=== PATIENT | male | born 1995 | race Caucasian/White ===

== ENCOUNTER 2018-09-28 11:23 | Emergency (ER) | payer OTHER ==
--- NOTE | 2018-09-28 12:44 | XR ---
EXAMINATION TYPE: XR chest 2V DATE OF EXAM: 09/28/2018 COMPARISON: Prior chest x-ray 09/16/2015 HISTORY: Upper respiratory infection, history of asthma TECHNIQUE: Frontal and lateral views of the chest are obtained. FINDINGS: Bronchial wall thickening is present. There is no focal air space opacity, pleural effusion , or pneumothorax seen. The cardiac silhouette size is within normal limits. The osseous structure s are intact. IMPRESSION: No acute cardiopulmonary process. There is improved aeration to the right upper lobe as compared to previous exam. Correlate for bronchitis, reactive airways disease.
--- NOTE | 2018-09-28 13:06 | ED ---
URI HPI - General Chief Complaint: Upper Respiratory Infection Stated Complaint: Sick Time Seen by Provider: 09/28/18 12:25 Source: patient Mode of arrival: ambulatory Limitations: no limitations - History of Present Illness Initial Comments: Patient is a 23-year-old male presenting to the emergency department complaining of sinus pain, sore throat, headache, congestion, ear pain x 4 days. Patient admits to history of mild asthma. Patient denies fever, chills, nausea, vomiting, shortness of breath, coughing. Patient has tried [id number] med ications without improvement. No other complaints at this time. - Related Data Home Medications Medication Instructions Recorded Confirmed Albuterol Inhaler [Ventolin Hfa 1 - 2 puff INHALATION Q6HR PRN 09/16/15 09/16/15 Inhaler] Albuterol Nebulized [Ventolin 2.5 mg INHALATION Q4H PRN 09/16/15 09/16/15 Nebulized] Beclomethasone Dipropionate [Qvar 2 puff INHALATION BID 09/16/15 09/16/15 80 mcg/puff] Previous Rx's Medication Instructions Recorded Amoxicillin/Potassium Clav 1 tab PO Q12HR #14 tab 09/13/15 [Augmentin 875-125 Tablet] Levofloxacin [Levaquin] 500 mg PO DAILY #10 tab 09/16/15 Albuterol Sulfate [Proair Hfa] 1 - 2 puff INHALATION Q4HR PRN #1 09/28/18 inhaler Amoxicillin/Potassium Clav 1 tab PO BID 5 Days #10 tab 09/28/18 [Augmentin 875-125 Tablet] Allergies Allergy/AdvReac Type Severity Reaction Status Date / Time No Known Allergies Allergy Verified 09/28/18 12:00 Review of Systems ROS Statement: Those systems with pertinent positive or pertinent negative responses have been documented in the HPI. ROS Other: All systems not noted in ROS Statement are negative. Past Medical History Past Medical History: Asthma History of Any Multi-Drug Resistant Organisms: None Reported Past Surgical History: No Surgical Hx Reported Past Psychological History: Depression, PTSD Smoking Status: Never smoker Past Alcohol Use History: None Reported Past Drug Use History: None Reported General Exam - General Exam Comments Initial Comments: GENERAL: Well-appearing, well-nourished and in no acute distress. Patient playing on phone. HEAD: Atraumatic, normocephalic. EYES: Pupils equal round and reactive to light, extraocular movements intact, sclera anicteric, conjunctiva are normal. ENT: TMs mild erythema, nares patent, oropharynx clear without exudates. Bilateral tonsils mildly enlarged, erythema. No exudates. Moist mucous membranes. NECK: Normal range of motion, supple without lymphadenopathy or JVD. LUNGS: Breath sounds clear to auscultation bilaterally and equal. No wheezes rales or rhonchi. HEART: Regular rate and rhythm without murmurs, rubs or gallops. ABDOMEN: Soft, nontender, normoactive bowel sounds. No guarding, no rebound. No masses appreciated. : Deferred EXTREMITIES: Normal range of motion, no pitting or edema. No clubbing or cyanosis. NEUROLOGICAL: Cranial nerves II through XII grossly intact. Normal speech, normal gait. PSYCH: Normal mood, normal affect. SKIN: Warm, Dry, normal turgor, no rashes or lesions noted. Limitations: no limitations Course Vital Signs 09/28/18 09/28/18 11:59 12:15 Temperature 98.7 F Pulse Rate 87 Respiratory 18 20 Rate Blood Pressure 124/88 O2 Sat by Pulse 99 Oximetry Medical Decision Making - Medical Decision Making Patient is a 23-year-old male complaining of sinus pain, congestion, ear pain 4 days. Patient has history of mild asthma. Patient denies fever, chills, cough, shortness of breath. Exam is within normal limits. Chest x-ray and strep test are negative. Patient will be discharged home with antibiotics for sinus infection and will follow up with PCP as needed. - Lab Data Lab Results 09/28/18 Range/Units 12:18 Group A Strep Rapid Negative (Negative) Disposition Clinical Impression: Sinusitis Disposition: HOME SELF-CARE Condition: Stable Instructions (If sedation given, give patient instructions): Sinusitis (ED) Additional Instructions: Please return to the Emergency Department if symptoms worsen or any other concerns. Follow-up with PCP as needed. Prescriptions: Amoxicillin/Potassium Clav [Augmentin 875-125 Tablet] 1 tab PO BID 5 Days #10 tab Albuterol Sulfate [Proair Hfa] 1 - 2 puff INHALATION Q4HR PRN #1 inhaler PRN Reason: difficulty in breathing Is patient prescribed a controlled substance at d/c from ED?: No Referrals: Lobito Becker MD [Primary Care Provider] - 1-2 days
[2018-09-28 13:19] VITALS: BP 120/80; PULSE 81; RESP 16; TEMP 98.2
== END 2018-09-28 13:18 | disposition home or self-care (01) ==
LOC: EC 11:23
DX: J32.9 Chronic sinusitis, unspecified (principal); J45.909 Unspecified asthma, uncomplicated; Z79.51 Long term (current) use of inhaled steroids
CPT/HCPCS: 71046; 87081; 87430; 99283

== ENCOUNTER → 2022-05-07 | Outpatient (CLI) | payer OTHER ==
--- NOTE | 2022-05-07 16:05 | US ---
EXAMINATION TYPE: US kidneys/renal and bladder DATE OF EXAM: 05/07/2022 COMPARISON: NONE CLINICAL HISTORY: N20.1 calculus ureter. patient never passed a stone but had pain a few days ago and then hematuria, those have now stopped EXAM MEASUREMENTS: Right Kidney: 11.7 x 4.6 x 4.7 cm Left Kidney: 12.3 x 5.8 x 4.6 cm Right Kidney: No hydronephrosis or masses seen Left Kidney: No hydronephrosis or masses seen Bladder: wnl Bilateral Jets seen: Yes There is no evidence for hydronephrosis at this point in time. No nephrolithiasis is seen. No addy s are identified. The urinary bladder is anechoic. Bilateral ureteral jets are seen. IMPRESSION: No hydronephrosis or nephrolithiasis.
== END | disposition home or self-care (01) ==
LOC: RADUSWWP 14:13
PROVIDERS: ATTEND Urology
DX: N20.1 Calculus of ureter (principal)
CPT/HCPCS: 76770